=== PATIENT | female | born 1960 | race Caucasian/White ===

== ENCOUNTER → 2016-10-04 | Outpatient (CLI) | payer BC ==
[2015-10-05 13:33] VITALS: BP 139/83; PULSE 72
[~2016-10-04] MED LIST: CALC500C70 PO; SPIR25TA PO; TAMO20TA9 PO
[2016-10-04 13:31] VITALS: BP 128/86; PULSE 81; TEMP 36.8; O2SAT 98
--- NOTE | 2016-10-04 16:26 | Radiation Oncology Follow-Up ---
Radiation Oncology Follow-Up Date of Visit Oct 04, 2016. Reason For Visit Annual follow up Radiation Completion Date Left APBI 06/25/12 Interim History She has noted no masses to her breast. There is no change of the axilla or swelling of her arm. She continues on tamoxifen. She did have an abnormal mammogram 04/05/2016. This showed a new grouped microcalcifications in the lower inner right breast which need additional evaluation. She then had a unilateral right breast mammogram 04/11/2016. Right breast stereotactic guided biopsies recommended for a new 2 mm cluster of punctate and amorphous microcalcifications in the lower inner right breast. This was carried out on . A stereotactic biopsy revealed fibroadenomatoid change with associated microcalcifications. Negative for DCIS and invasive carcinoma. Another area of tissue was evaluated and was benign. Specimen [id number]. Allergies Coded Allergies: Adhesives (Verified Allergy, Unknown, BLISTERS WHEN BANDAID'S WORN, ) Blueberry (Verified Allergy, Unknown, BLISTERS WITH "BERRIES", 05/06/14) Caffeine (Verified Allergy, Unknown, BLISTERS, 05/06/14) Chocolate (Verified Allergy, Unknown, BLISTERS, 05/06/14) Cranberry Extract (Verified Allergy, Unknown, BLISTERS WITH "BERRIES", ) NUTS (Verified Allergy, Unknown, BERRIES, 05/06/14) Raspberry (Verified Allergy, Unknown, BLISTERS WITH "BERRIES", 05/06/14) Stanton (Verified Allergy, Unknown, BLISTERS WITH "BERRIES", 05/06/14) Home Medications Scheduled Calcium/Vitamin D (Os-Ulysses 500 Plus D), 1 TAB PO DAILY Spironolactone (Aldactone), 25 MG PO DAILY Tamoxifen (Nolvadex), 20 MG PO DAILY Review of Systems Gastrointestinal: Symptoms: WNL Oral: Symptoms: No Problems Respiratory: Symptoms: WNL Other Respiratory: Dry hacking cough since patient had flu 3-4 wks ago Urinary: Symptoms: WNL Skin: Symptoms: No Problems Other Skin Symptoms: Incision healing on left buttock - no observed by me Breast: Right Upper Arm Measurement: 39.8 Right Mid Arm Measurement: 31.7 Right Wrist Measurement: 17.0 Left Upper Arm Measurement: 40.7 Left Mid Arm Measurement: 32.3 Left Wrist Measurement: 17.3 Arm Dominence: Right Physical Exam Vital Signs Date Time Temp Pulse Resp B/P Pulse Ox O2 Delivery O2 Flow Rate FiO2 10/04/16 13:31 36.8 81 16 128/86 98 Pain: Pain Location: None Patient Pain Scale: 0 - 10 Initial Pain Intensity: 0.0 Fatigue: None General Appearance: no apparent distress Eyes: normal inspection, EOMI ENT: normal ENT inspection, hearing grossly normal Neck: supple, no adenopathy, thyroid normal, + pertinent finding (left neck post operative changes) Respiratory/Chest: lungs clear, no respiratory distress, no accessory muscle use Breast: Well healed incisions of the left breast. There is telangetasia of in the area of the breast incision. There are no masses or tenderness and no axillary adenopathy. There are no skin retractions or nipple changes. Using the Leander score cosmesis she has a good outcome. The right breast showed no masses or tenderness and no axillary adenopathy. Cardiovascular: regular rate, rhythm, no gallop, no murmur Abdomen: non tender, soft Extremities: no pedal edema Neurologic/Psychiatric: no motor/sensory deficits, alert, normal mood/affect Skin: warm/dry Additional Studies Mammography as reviewed above. As well as pathology. Assessment & Plan Plan: Continue regular follow-up with medical oncology and Dr. Wesley. A follow-up appointment with our office was not given. She'll call if she has a questions or concerns we'll be happy to see her. Total Time In Follow-Up I spent 20 minutes speaking to the patient to perform examination. I spent 15 minutes reviewing information completing this note. Copy To Quincy Wesley M.D.
== END | disposition home or self-care (01) ==
LOC: C.ONC 13:17
PROVIDERS: ATTEND Physician Assistant Medical
DX: Z08 Encounter for follow-up examination after completed treatment for malignant neoplasm (principal); Z92.3 Personal history of irradiation; Z85.3 Personal history of malignant neoplasm of breast

== ENCOUNTER → 2016-12-28 | Outpatient (CLI) | payer BC ==
[2016-12-28 12:23] LABS: BASO % 0.4 %; BASO ABS # 0.02 K/uL (0-0.2); COMPLETE YES; IG% 0.2 %; LYMPH % 27.7 %; LYMPH ABS # 1.29 K/uL (1.2-3.4); MEAN CELL VOLUME 89.4 fL (80-100); MEAN CORPUSCULAR HEMOGLOBIN 30.9 pg (25-34); MEAN CORPUSCULAR HGB CONC 34.6 g/dl (32-36); MEAN PLATELET VOLUME 11.4 fL (7.4-10.4); MONO % 8.4 %; NEUT % 60.3 %; PLATELET COUNT 226 K/uL (130-400); RED BLOOD COUNT 4.14 M/uL (4.2-5.4); WHITE BLOOD COUNT 4.66 K/uL (4.8-10.8)
[2016-12-28 13:02] LABS: ESTIMATED AVERAGE GLUCOSE 123 mg/dl; HA1C FLAG Normal (Normal)
[2016-12-28 13:31] LABS: BLOOD UREA NITROGEN 13 mg/dl (7-18); BUN/CREATININE RATIO 12.2 (10-20); CALCIUM 9.1 mg/dl (8.5-10.1); CARBON DIOXIDE 25 mmol/L (21-32); CHLORIDE 109 mmol/L (98-107); CHOLESTEROL 158 mg/dl (0-200); GLUCOSE 96 mg/dl (70-99); POTASSIUM 3.8 mmol/L (3.5-5.1); SODIUM 142 mmol/L (136-145)
[2016-12-28 13:42] LABS: ALB/GLOB RATIO 1.1 (0.9-2); ALKALINE PHOSPHATASE 49 U/L (45-117); ALT/SGPT 42 U/L (12-78); AST/SGOT 23 U/L (15-37); CHOLESTEROL/HDL RATIO 3.2; HDL CHOLESTEROL 50 mg/dl; LDL CHOLESTEROL CALCULATED 85 mg/dl; TRIGLYCERIDES 115 mg/dl (0-150); VERY LOW DENSITY LIPOPROT CALC 23 mg/dl
== END | disposition home or self-care (01) ==
LOC: C.LABBFT 09:53
PROVIDERS: ATTEND Internal Medicine Geriatric Medicine
DX: I10 Essential (primary) hypertension (principal); R73.9 Hyperglycemia, unspecified; G47.33 Obstructive sleep apnea (adult) (pediatric); E04.2 Nontoxic multinodular goiter; Z68.41 Body mass index [BMI] 40.0-44.9, adult

== ENCOUNTER → 2017-04-29 | Outpatient (CLI) | payer BC ==
--- NOTE | 2017-04-29 13:35 | MAMMOGRAPHY REPORT ---
BILATERAL DIGITAL DIAGNOSTIC MAMMOGRAM TOMOSYNTHESIS WITH CAD: 04/29/2017 CLINICAL HISTORY: 56-year-old woman presents for annual bilateral mammography. She underwent stereot actic guided biopsy on 04/24/2016 in the lower inner right breast which yielded benign pathology resu lts. History of left breast cancer in the upper outer quadrant, status post lumpectomy and radiation . The patient also reports intermittent burning sensation in the lateral left breast, which occurred for a few weeks over the summer but has since resolved. TECHNIQUE: Bilateral breast tomosynthesis in addition to standard 2D mammography was performed. Curre nt study was also evaluated with a Computer Aided Detection (CAD) system. COMPARISON: Comparison is made to exams dated: 04/24/2016 mammogram, 04/24/2016 stereotactic biopsy, 04/11/2016 mammogram, 04/05/2016 mammogram, 08/04/2015 ultrasound, and 08/04/2015 mammogram - [facility]. BREAST COMPOSITION: There are scattered areas of fibroglandular density in both breasts. FINDINGS: There is expected architectural distortion and surgical clips in the upper outer posterior left breast, at the site of prior lumpectomy. There is a stable benign popcorn calcification in the lateral right breast, and a stable T-shaped biopsy marker clip in the lower inner quadrant of the rig ht breast, denoting the site of recent benign stereotactic biopsy. There are a few scattered benign- appearing round microcalcifications in the breasts. No suspicious mass, architectural distortion or cluster of suspicious microcalcifications is seen. IMPRESSION: ACR BI-RADS CATEGORY 2: BENIGN 1. Stable bilateral mammograms, without mammographic evidence of malignancy. A 1 year screening [facility] is recommended. 2. We discussed the reported burning sensation in the lateral left breast is possibly related to fransico or surgery and/or radiation therapy. If she develops this symptom again, she could return for additi onal imaging with ultrasound in the area of concern. Otherwise recommend routine screening in 1 year . The patient has been verbally notified of the results. Approximately 10% of breast cancers are not detected with mammography. A negative mammographic report should not delay biopsy if a clinically suggestive mass is present. Corry Kirk M.D. ay/:04/29/2017 10:15:56 [employer] Teacher: Janey KIMBLE)(Murtaza), [facility] letter sent: Normal 07/09 BI-RADS Code: ACR BI-RADS Category 2: Benign
== END | disposition home or self-care (01) ==
LOC: C.MAMM 09:25
PROVIDERS: ATTEND Internal Medicine Geriatric Medicine
DX: Z85.3 Personal history of malignant neoplasm of breast (principal)

== ENCOUNTER 2024-08-07 05:11 | Observation (INO) ==
--- NOTE | 2024-07-03 09:39 | PAT Medication Instructions ---
Medication Instructions Date of Service July 03, 2024 Home Medications Medication Instructions Recorded Auto Titrating CPAP See Rx Instructions .Route 01/16/21 .COMPLEX #1 ea spironolactone 50 mg tablet 50 mg PO QAM #90 tabs 08/27/23 metformin 500 mg tablet,extended 500 mg PO QPM #90 tabs 12/24/23 release 24 hr rosuvastatin 10 mg tablet 10 mg PO DAILY #90 tabs 01/13/24 tirzepatide 5 mg/0.5 mL 5 mg (0.5 mL) subcut Q7D #2 mL 05/07/24 subcutaneous pen injector topiramate 25 mg tablet 25 mg PO DAILY #30 tabs 05/20/24 spironolactone 50 mg tablet 50 mg PO QAM metformin 500 mg tablet,extended release 24 hr 500 mg PO QPM rosuvastatin 10 mg tablet 10 mg PO DAILY tirzepatide 5 mg/0.5 mL subcutaneous pen injector 5 mg (0.5 mL) subcut Q7D topiramate 25 mg tablet 25 mg PO DAILY STOP 7 days before surgery tirzepatide 5 mg/0.5 mL subcutaneous pen injector 5 mg (0.5 mL) subcut Q7D Continue as directed rosuvastatin 10 mg tablet 10 mg PO DAILY topiramate 25 mg tablet 25 mg PO DAILY DO NOT take the morning of surgery spironolactone 50 mg tablet 50 mg PO QAM Take evening before surgery metformin 500 mg tablet,extended release 24 hr 500 mg PO QPM Other Notes NOTHING TO EAT OR DRINK AFTER MIDNIGHT. If you have any questions please call us at [phone] or [phone] or [phone] or [phone]
--- NOTE | 2024-07-15 11:40 | Anesthesiology Consultation ---
Date of Service July 15, 2024 Assessment & Plan (1) Encounter for pre-operative examination: Chart Review Chart Review: Acceptable Risk for Surgery (pending review of PCP ordered ECHO 07/17/24) and Patient seen in Pre Admission Testing - Awaiting ECHO ([place]) 07/17/24 (ordered by PCP) - Check BSG AM DOS - Patient not an ideal OPJ candidate (currently 23 hour obs ) Chlorhexidine allergy- no wipes given at PAT appt - Tirzepatide instructions: Patient takes on (Fridays). Patient informed at PAT visit to stop 7 days prior to surgery- voiced understanding. Last dose of Tirzepatide will be in the AM on 07/31/24. Patient will be off Tirzepatide x 7 days by DOS on 08/07/24. Per PAT appt on 07/15/24, no recent illness/disease exposures, illness related symptoms, or recent illness/disease positive tests. Will leave to surgeon's discretion if preop Covid testing needed Patient seen by PCP 06/21/24= seen for routine follow up. HTN- acceptable control. Continue current medications. Dyslipidemia- continue statin. DM- currently at goal. Severe obesity- slowly improving with GLP-1RA/GIP. Encourage diet and exercise. Moderate UBALDO- CPAP. 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 No evidence od recurrence. Hx of breast cancer 2011- s/p resection, XRT and tamoxifen x 5 years... Recent left chest/breast pain- chest well nontender. Has upcoming mammogram. Symptoms are not exertional... EKG NSR. Considering upcoming surgery- should have CXR and ECHO. OA... To have left total hip arthroplasty next month. Using revised cardiac risk index, she is low risk for perioperative cardiovascular complications. She should hold Mounjaro the week prior to surgery. Teaching & Discussion Pre-Anesthesia Teaching/Discussion Notes: Instructed NPO after midnight before surgery,except medications with 15 cc of water. Medication instructions provided according to the [facility] guidelines. History Surgery Operation Date: 08/07/24 12:40 Proposed Procedures p Left Total Hip Arthroplasty Anterior - Al Florse DO Height/Weight Height: 5 ft 1 in Weight: 97.7 kg Allergies Allergy/AdvReac Type Severity Reaction Status Date / Time adhesive Allergy Intermediate BLISTERS Verified 07/10/24 14:40 WHEN BANDAID'S WORN latex Allergy Mild Redness of Verified 07/10/24 14:40 Skin lisinopril AdvReac Intermediate dry cough Verified 07/10/24 14:40 losartan AdvReac Intermediate dry cough Verified 07/10/24 14:40 chlorahexidine Allergy Intermediate Rash Uncoded 07/10/24 14:40 Medications Home Medications Medication Instructions Recorded Confirmed Last Taken Auto Titrating CPAP See Rx Instructions .Route 01/16/21 07/10/24 Unknown .COMPLEX #1 ea spironolactone 50 mg tablet 50 mg PO QAM #90 tabs 08/27/23 07/10/24 Unknown metformin 500 mg tablet,extended 500 mg PO QPM #90 tabs 12/24/23 07/10/24 Unknown release 24 hr rosuvastatin 10 mg tablet 10 mg PO DAILY #90 tabs 01/13/24 07/10/24 Unknown topiramate 25 mg tablet 25 mg PO DAILY #30 tabs 05/20/24 07/10/24 Unknown tirzepatide 5 mg/0.5 mL 5 mg (0.5 mL) subcut Q7D #2 mL 07/15/24 07/15/24 Unknown subcutaneous pen injector Past Medical History Medical History Acinar cell carcinoma of salivary gland (~05/13/14) H/O - sx >> no chemo/radiation Arthritis Basal cell carcinoma of left lower leg h/o- excision Dermatofibroma Ductal carcinoma in situ (DCIS) of left breast 2012--s/p lumpectomy and radiation Dyslipidemia History of COVID-19 ~03/08/2024 - no hosp; resolved HTN (hypertension) Multiple thyroid nodules stable Obesity states on topamax for weightloss Rosacea Sleep apnea CPAP Type 2 diabetes mellitus Exercise / Class Metabolic Activity II 4-5 Yardwork/Stairs/Walk up hill (one flight of stairs - no chest pain or SOB ) Past Family History Family History Sister Family history of diabetes mellitus Father Family history of diabetes mellitus Arthritis Mother Breast cancer Grandmother Stroke Family/Other Diabetes Other No family history of adverse response to anesthesia Denies family history of Ovarian cancer Prostate cancer Myocardial infarction Lung cancer Colorectal cancer Past Surgical History Surgical History H/O parotidectomy (~05/2014) 2013-left d/t parotid mass History of cataract surgery History of colonoscopy last 06/24/2018 History of endometrial ablation History of lumpectomy of left breast 2012 @ [facility] History of tooth extraction wisdom teeth S/P epidural steroid injection hip injections Past Anesthesia History No Hx of Anesthesia Complications and No Family Hx of Anesthesia Complications History of PONV No Hx of PONV and No Hx of Motion Sickness Social History Smoking Status: Never smoker Do You Dip or Chew Tobacco: No Hx Alcohol Use: No Hx Substance Use: No substance use type: does not use Review of Systems - Left sided chest discomfort - lasted a few days in Jun 2024- occurred during rest. Lasted few minutes- resolved. PCP aware- reason for ECHO ordered. Has completely resolved. No issues with physical activity. Had been using different shifting positions with transitioning due to hip pain- possible pulled muscle. - Hx of reflux- relieved with OTC antacids Patient denies substernal chest pain, shortness of breath, dyspnea on exertion, reflux, cough, wheezing, palpitations. No hx of seizures, stroke, AK. No hx of blood clots or blood transfusions Physical Exam Vital Signs VITALS BP 120/77 P 68 TEMP 97.8 SP02 97% RESP 16 Constitutional no acute distress ENMT Mouth: no TMJ clicking Thyromental Distance: < 3.5 Finger Breadths (3.0) Mallampati Class: II [place] to molar Neck neck extension not limited Respiratory normal respiratory effort; no respiratory distress Auscultation: lungs clear to auscultation bilaterally; no wheezes Cardiovascular Rate/Rhythm: regular rate and regular rhythm Heart Sounds: no murmur Vessels: no carotid bruit Musculoskeletal Spine: no pain with cervical ROM Extremities: extremities normal to inspection Psychiatric Orientation: alert Lab Results Anesthesia Preop Results Results Anesthesia Widget: WBC 6.38 K/ul (4.8-10.8) 07/15/24 Hgb 13.3 g/dl (12.0-16.0) 07/15/24 Hct 39.2 % (37.0-47.0) 07/15/24 Plt 272 K/uL (130-400) 07/15/24 Na 140 mmol/L (136-145) 07/15/24 K 4.0 mmol/L (3.5-5.1) 07/15/24 Cl 108 mmol/L (98-107) H 07/15/24 CO2 26 mmol/L (21-32) 07/15/24 BUN 14 mg/dl (6-23) 07/15/24 Creat 1.00 mg/dl (0.6-1.2) 07/15/24 Glucose Level 80 mg/dl (70-99(Fasting)) 07/15/24 PT 10.5 Seconds (9.0-12.0) 07/15/24 PTT 27 Seconds (21-31) 07/15/24 INR 1.0 (0.9-1.1) 07/15/24 HA1c 5.7 % (4.5-5.6) H 07/15/24 Blood Type A Positive 07/15/24 Antibody Screen NEGATIVE 07/15/24 Testing Electrocardiogram Date: 06/22/24 SR with 70bpm Inferior and anterior T wave changes are nonspecific Likely lead placement per confirming provider Chest X-Ray Date: 07/15/24 Findings: + NAD
[2024-08-07] MEDS: LR 500ML BOLUS, THEN 15ML/HR IV SCH (06:08)
[2024-08-07] MEDS: LR 60ML/HR IV SCH (06:08)
[2024-08-07] MEDS: dexAMETHasone**PF** 10 MG/ML VIAL IV SCH (06:09)
[2024-08-07] MEDS: GABAPENTIN 300 MG CAP PO SCH (06:09)
[2024-08-07] MEDS: FAMOTIDINE 20 MG TAB PO SCH (06:09)
[2024-08-07] MEDS: ACETAMINOPHEN 500 MG TAB PO SCH ×2 (06:09→14:32)
[2024-08-07] MEDS ORDERED: BUPIVACAINE 0.5 % 5 MG/1 ML PF 10ML VIAL ONE (06:35)
--- NOTE | 2024-08-07 06:39 | History & Physical Bridge Note ---
Date of Service August 07, 2024 History & Physical Bridge Note I have examined the patient, reviewed the History & Physical and in the interval since the performance of the History & Physical I have noted the following changes of clinical significance: no changes noted
[2024-08-07] MEDS: TRANEXAMIC ACID 1,000 MG **IV Pre-op IV SCH (06:44)
[2024-08-07] MEDS ORDERED: MIDAZOLAM HCL 1 MG/ML 2ML VIAL ONE (06:46)
[2024-08-07] MEDS ORDERED: fentaNYL citrate PF 100 MCG/2 ML VIAL IV PRN (07:05)
[2024-08-07] MEDS ORDERED: PROMETHAZINE HCL 6.25 MG in SODIUM CHLORIDE 0.9% 50 ML IV PRN (07:05)
[2024-08-07] MEDS ORDERED: ATROPINE SULFATE 0.1 MG/ML 10ML SYR IV PRN (07:05)
[2024-08-07] MEDS ORDERED: ePHEDrine sulfate 50 MG/ML AMP IV PRN (07:05)
[2024-08-07] MEDS ORDERED: ONDANSETRON INJ 2 MG/ML 2 ML VIAL IV PRN ×2 (07:05→10:26)
[2024-08-07] MEDS ORDERED: PROPOFOL IV EMULSION 10 MG/ML 20 ML VIAL IV ONE (07:06)
[2024-08-07] MEDS: ceFAZolin 2000MG 2,000 MG/15 ML SYR IV SCH ×2 (07:10→14:32)
[2024-08-07] MEDS ORDERED: KETAMINE HCL 10MG/ML SYR ONE (07:27)
[2024-08-07] MEDS: ORTHO JOINT ANESTHETIC ONE (07:42)
[2024-08-07] MEDS: ROPIV 0.5% 246mg, Ketorolac 30mg, EPINEPHrine 0.5mg in NSS INFIL SCH (07:42)
[2024-08-07] MEDS ORDERED: ONDANSETRON INJ 2 MG/ML 2 ML VIAL ONE (08:00)
[2024-08-07] MEDS: TRANEXAMIC ACID 1,000 MG **IV Intra-op IV SCH (08:06)
--- NOTE | 2024-08-07 08:08 | Operative Report ---
PG Post Operative Report Pre & Post Diagnosis Operation Date: 08/07/24 07:00 Pre-Op Diagnosis: Left Hip Osteoarthritis Post-Op Diagnosis: Left Hip Osteoarthritis I identified the patient and participated in the time-out.: Yes Procedure Operation Date: 08/07/24 07:00 Actual Procedures p Left Anterior Total Hip Arthroplasty, Uncemented(Left) - Al Flores DO Surgeon Al Flores DO [employer] Delfino Kerr PA-C Estimated Blood Loss 150 Findings Consistent with Post-Op Diagnosis Specimens Left femoral head Description of Procedure Implants used I used a ZimmerBiomet total hip arthroplasty system with a size 2 standard offset Avenir Complete stem, a 48 mm G7 cup with a 25mm screw, an E1 polyethylene liner, a 32 mm ceramic head with a +3.5 neck. Jennifer arrived at the hospital for the above procedure. She was seen in the preoperative holding area and the operative extremity was identified and signed. She was given a spinal anesthetic, a preoperative antibiotic, and TXA. She was then taken back to the operating room and laid on the table in the supine position. She was given basic sedation. The operative leg was secured to a Puristst leg positioner. The hip was then prepped and draped in sterile fashion. A timeout was done and the patient and the operative extremity was properly identified. An anterior approach was used. Dissection was taken down through the fascia and the tensor muscle belly was retracted laterally and the rectus was retracted medially. The circumflex vessels were identified and ligated. The capsule was then incised and tagged for later repair. The femoral neck was then cut and the femoral head was removed. The acetabulum was exposed. Time was spent doing a complete circumferential labral release. Sequential reaming of the acetabulum up to a size 47 reamer was done. Final reamings were done under fluoroscopy to ensure appropriate version. A Biomet 48 mm G7 cup was then impacted into place. A single 25 mm screw was placed. The E1 polyethylene liner was then snapped into place. Surrounding soft tissues were then injected with 100 cc of an orthopedic pain control cocktail. The proximal femur was then exposed. Sequential broaching up to a size 2 broach was done. Off that broach a size 32 head with a +3.5 neck was trialed. The hip was reduced and fluoroscopic images showed anatomic alignment of the implants in acceptable length. The broach was removed. The final size 2 standard offset Avenir Complete stem was then impacted into place. A ceramic 32 mm head with a +3.5 neck was then impacted onto the stem and the hip was reduced. Final fluoroscopic images showed anatomic alignment of the hip. The capsule was then closed with #1 Vicryl suture. A dilute betadyne lavage was then done for 3 minutes. The joint was then irrigated with normal saline solution. The fascia was closed with #1 PDS suture. Skin was closed with 2-0 Vicryl, mark, and a Silverlon dressing. She was then transferred to a hospital bed and taken to the post anesthesia care unit in stable condition. She tolerated the procedure well. Delfino Kerr PA-C, was present for the entire procedure. He was critical for patient positioning, prepping, draping, retraction exposure, wound closure and application of sterile dressing. I attest to the content of the Intraoperative Record and any orders documented therein. Any exceptions are noted below.
--- NOTE | 2024-08-07 08:56 | XRay Report ---
XR hip 1V LT w pelvis CLINICAL HISTORY: IN PACU - Post Surgical COMPARISON: 08/28/2023 FINDINGS: Interval left hip prosthesis shows no hardware complication. There is expected soft tissue gas and skin mark are present. IMPRESSION: Unremarkable postoperative exam. ACT 112: Negative or not required by law. Electronically signed by: Armando Haider M.D. 08/07/2024 8:55 AM
--- NOTE | 2024-08-07 09:59 | Fluoroscopy Report ---
FL hip LT 1V CLINICAL HISTORY: LEFT ANTERIOR HIPpostop COMPARISON STUDY: 07/15/2024 FLUOROSCOPY TIME: 23.5 seconds FLUOROSCOPY IMAGES: 1 EXPOSURE DOSE: 3.74 mGy FINDINGS: Single C-arm spot film demonstrates a left total hip arthroplasty with satisfactory positio nadia and alignment of the prosthetic components. IMPRESSION: As above ACT 112: Negative or not required by law. Electronically signed by: Yue Barriga M.D. 08/07/2024 9:57 AM
[2024-08-07] MEDS ORDERED: MAGNESIUM HYDROXIDE SUSP 30 ML UDC PO PRN (10:26)
[2024-08-07] MEDS ORDERED: TIRZEPATIDE 5 MG/0.5 ML SQ SCH (10:26)
[2024-08-07] MEDS ORDERED: NON-FORMULARY MEDICATION (Auto Titrating Cpap misc) SCH (10:26)
[2024-08-07] MEDS ORDERED: PHARMACY GLYCEMIC MGMT CONSULT PRN (10:26)
[2024-08-07] MEDS ORDERED: bisacodyL 10 MG SUPP PR PRN (10:26)
[2024-08-07] MEDS ORDERED: oxyCODONE HCL IR 5 MG TAB (IMMEDIATE RELEASE) PO PRN (10:26)
[2024-08-07] MEDS ORDERED: HYDROmorphone INJ 0.5 MG/0.5 ML SYR IV PRN (10:26)
[2024-08-07] MEDS ORDERED: METOCLOPRAMIDE HCL INJ 5 MG/ML 2 ML VIAL IV PRN (10:26)
[2024-08-07] MEDS ORDERED: ASPIRIN 81 MG ECTAB PO SCH (10:26)
[2024-08-07] MEDS ORDERED: NALOXONE HCL 0.4 MG/1 ML VIAL/CARP IV PRN (10:26)
[2024-08-07] MEDS ORDERED: GLUCOSE 10 TAB/TUBE PO PRN (11:15)
[2024-08-07] MEDS ORDERED: GLUCAGON FOR INJ 1 MG VIAL SQ PRN (11:15)
[2024-08-07] MEDS ORDERED: DEXTROSE 50% 50 ML SYRINGE IV PRN (11:15)
[2024-08-07] MEDS ORDERED: CARBOHYDRATES FOR HYPOGLYCEMIA PO PRN (11:15)
[2024-08-07] MEDS ORDERED: GLUCOSE 40% GEL 15 GM TUBE PO PRN (11:15)
[2024-08-07] MEDS: SPIRONOLACTONE 25 MG TAB PO SCH (11:39)
[2024-08-07] MEDS: TOPIRAMATE 25 MG TAB PO SCH (11:39)
[2024-08-07] MEDS: KETOROLAC TROMETHAMINE 15 MG/ML VIAL IV SCH (11:39)
[2024-08-07] MEDS: DOCUSATE SODIUM 100 MG CAP PO SCH (11:40)
[2024-08-07] MEDS: MULTIVITAMIN TAB PO SCH (11:41)
[2024-08-07] MEDS: ROSUVASTATIN CALCIUM 10 MG TAB PO SCH (11:41)
[2024-08-07] MEDS: INSULIN ASPART PER UNIT CHARGE SC SCH (12:29)
--- NOTE | 2024-08-07 14:40 | Anesthesiology Progress Note ---
Date of Service August 07, 2024 Anesthesia Post Procedure Vital Signs Vital Signs: Temp Pulse Pulse Resp BP Pulse Ox O2 Del Method 08/07/24 13:11 84 16 153/87 H 96 Room Air 08/07/24 12:20 84 16 136/84 97 Room Air 08/07/24 11:21 36.4 C L 76 16 125/80 100 Room Air 08/07/24 11:10 36.3 C L 78 17 123/77 94 Room Air 08/07/24 10:43 36.3 C L 18 135/81 97 Room Air 08/07/24 09:55 73 20 134/73 98 Room Air 08/07/24 09:45 36.4 C L 79 24 136/72 98 Room Air 08/07/24 09:35 79 19 136/92 100 Room Air 08/07/24 09:25 74 16 130/67 95 Room Air 08/07/24 09:15 75 14 128/69 97 Room Air 08/07/24 09:05 75 22 123/66 98 Room Air 08/07/24 08:55 77 27 H 119/68 99 Room Air 08/07/24 08:45 76 20 134/66 99 Oxymask 08/07/24 08:35 79 24 126/81 100 Oxymask 08/07/24 08:28 36.0 C L 85 23 114/60 97 Oxymask 08/07/24 05:40 37.2 C 90 20 171/81 H 97 Room Air O2 Flow Rate 08/07/24 13:11 08/07/24 12:20 08/07/24 11:21 08/07/24 11:10 08/07/24 10:43 08/07/24 09:55 08/07/24 09:45 08/07/24 09:35 08/07/24 09:25 08/07/24 09:15 08/07/24 09:05 08/07/24 08:55 08/07/24 08:45 5 08/07/24 08:35 10 08/07/24 08:28 10 08/07/24 05:40 Pain Intensity Left Hip: Pain Intensity: 2 Transfer of Care Handoff Completed per policy Notes Mental Status: alert / awake / arousable and participated in evaluation Patient Amnestic to Procedure: Yes Nausea / Vomiting: adequately controlled Pain: adequately controlled Airway Patency, RR, SpO2: stable & adequate BP & HR: stable & adequate Hydration State: stable & adequate Neuraxial Anesthesia: was administered and sensory block is resolving Anesthetic Complications: no major complications apparent and Pt Satisfied with anesthetic care
--- NOTE | 2024-08-07 16:06 | Pharmacy Report ---
Pharmacy Glycemic Short Note 2 - Date of Service August 07, 2024 - Glycemic Short BSG Results (Last 24 hours): 08/07/24 08/07/24 08/07/24 05:44 08:32 11:25 POC Glucose 103 H 130 H 115 H OUTPATIENT ANTIDIABETIC REGIMEN: * Metformin ER 500 mg PM * Tirzepatide 5 mg SC weekly on Fridays * A1c = 5.7% (07/15/24) ASSESSMENT: * Jennifer is a 63 yo s/p left anterior total hip arthroplasty * Patient received dexamethasone IV preop, no further steroids ordered. * Do not anticipate basal insulin will be needed based on A1c and current BSG values (103, 115 mg/dL). * Will order overnight checks to ensure additional insulin is given if BSG trends up. PLAN FOR INPATIENT GLYCEMIC CONTROL: * Hold outpatient oral diabetes medications * Basal insulin * none * Bolus insulin * NovoLog per scale ACHS or Q6hrs while NPO * Goal Range: Low 110 mg/dL - High 140 mg/dL * Correction Factor: 25 mg/dL/unit * Nutritional / Prandial insulin per carb ratio of 1 unit per 8 grams CHO consumed
[2024-08-07] MEDS ORDERED: INSULIN ASPART PER UNIT CHARGE SC SCH (16:30)
[2024-08-07] MEDS: ASPIRIN 81 MG ECTAB PO SCH (22:16)
[2024-08-07] MEDS: SENNA 8.6 MG TAB PO SCH (22:16)
[2024-08-08] MEDS: INSULIN ASPART PER UNIT CHARGE SC SCH (00:34)
[2024-08-08 07:14] VITALS: BP 128/87; PULSE 64; RESP 18; TEMP 97.7; O2SAT 98
--- NOTE | 2024-08-08 07:18 | Orthopedic Progress Note ---
Date of Service August 08, 2024 Assessment & Plan (1) Status post left hip replacement: Overall she is doing very well. She is not having much pain in the left hip. She we will be seen by physical therapy today for ambulation and range of motion exercises. She is on aspirin for DVT prophylaxis. She can be discharged to home later today. She will follow-up with orthopedics in 2 weeks. Ana Rodriguez was seen and examined at bedside this morning. Overall she is doing very well. She is not having much pain in the left hip. She has been up and ambulating to the bathroom. She has no complaints.. Review of Systems All systems reviewed & are unremarkable except as noted in HPI & below. Physical Exam On physical exam of the left hip, the dressing is clean and dry. Her leg is out full extension. She has active dorsiflexion plantarflexion of her left ankle.. Results & Data Results & Data Laboratory Results . Diagnostic Findings Postoperative x-rays of the left hip show the prosthesis to be in anatomic alignment without any evidence of fracture complication, or loosening.. PG Care Time/CCT Total # of Minutes Spent Total Time Spent with Patient: Total time spent is greater than 50% in coordination of care (as documented) at patient's floor/unit and/or counseling patient: Coding Level of Care Code 46047 Post Operative Follow-Up Diagnoses Status post left hip replacement Z96.642
--- NOTE | 2024-08-08 07:19 | Discharge Summary ---
Date of Service August 08, 2024 Principal Diagnosis Same as "Discharge Diagnosis" noted below under Discharge Instructions. Discharge Exam On physical exam of the left hip, the dressing is clean and dry. Her leg is out full extension. She has active dorsiflexion plantarflexion of her left ankle.. Discharge Data Procedures Performed Operation Date: 08/07/24 07:00 Actual Procedures p Left Anterior Total Hip Arthroplasty, Uncemented(Left) - Al Flores DO Ordered Studies 08/07/24 07:00 FL hip LT 1V Routine Hospital Course (1) Status post left hip replacement: On August 07, 2024 Jennifer arrived at [facility] and underwent a left hip replacement without complication. She had a spinal anesthetic. Postoperatively she was started on aspirin for DVT prophylaxis and transferred to the general orthopedic floors. Her hospital course was uneventful. On postop day #1, her vital signs were stable and her pain was well-controlled. She was able to participate well with physical therapy doing ambulation and range of motion exercises. She was then discharged to home. She will follow-up with orthopedics in 2 weeks. PG Care Time/CCT Total # of Minutes Spent Total Time Spent with Patient: Total time spent is greater than 50% in coordination of care (as documented) at patient's floor/unit and/or counseling patient: Discharge Plan Discharge Items Patient Disposition: Home - Self-Care Reason For Visit: Left Hip Arthritis Discharge Diagnosis: Left hip replacement Activity: Per Instructions section Non-emergency contact: Surgeon Call non-emergency contact if: your wound has increased redness and your wound has increased drainage Follow-up/Referrals: Elisabteh Collazo MD [Primary Care Provider] - Diet: Regular Addtl Attending Provider Instructions: Activity and Therapy Recommendations: * If you are using [facility] then therapy will be provided at your home until they feel you have accomplished all of your goals. * If you are using [facility] then Physical Therapy will be provided until they feel you are ready to start Outpatient Physical Therapy. * If you are not using home therapy then Outpatient Physical Therapy should start about 3-5 days from your day of surgery. Therapy will last about 6-10 weeks * You were shown a series of exercises in the hospital. Do these exercises three times each day including the exercises you were shown in physical therapy. * Get up and walk several times each day.~ For the first four weeks, try not to stand or walk for more than one hour at a time. If you do stand or walk for more than one hour, you will not hurt anything, but your leg will likely swell.~~ * As you feel comfortable, you may change from the walker or crutches to a cane and~then to independent walking. Medications: * Narcotic You will likely be sent home from the hospital with a prescription f or the narcotic pain medication that worked best throughout your stay. * Cefadroxil -take the antibiotic twice a day for 10 days to help prevent infection. * Aspirin Most patients will be required to take Aspirin 81mg twice a day for 6 weeks after surgery. This is obtained [id number] and a prescription is not necessary. * Other medications may be prescribed for specific circumstances. If you have any questions, please call the office at . * Resume previous home medications unless otherwise instructed TEDs/Elastic Stockings: The white elastic stockings help limit swelling and prevent blood clots from forming in your legs. The more you wear them, the more they work. Wear them for six weeks. Dressing Care: Leave the Silverlon dressing in place for 7 days. After 7 days you may remove the dressing. If the incision is not draining then you may leave the mark open to air. If there is a little bit of drainage or if the mark are getting stuck on your clothing then cover the incision with a dry dressing. The mark will be removed at your 2 week follow-up appointment. Showering: You may shower with the Silverlon dressing in place. Do not let the shower spray hit the dressing directly. Pat the Silverlon dressing dry. If the dressing becomes wet underneath, then simply remove the dressing. Keep the incision dry until you are 7 days out from the day of surgery. After 7 days you may remove the Silverlon dressing and shower with the mark exposed. Let soapy water run over the mark and pat them dry. Do not scrub or soak the incision. Diet: You may resume your previous diet. Things To Watch For: * Drainage from the incision site that occurs more than one week after your surgery. * Increased redness at the incision site. * Fever above 102 degrees Fahrenheit. * Unusual chest pain or shortness of breath. * Call [facility] at with any of the above problems Follow-Up Visit: Follow-up with Dr. Flores's office 2-3 weeks after your day of surgery. We will remove your mark and answer any questions. If you have any additional questions or concerns, Dr Flores is usually in the office at the same time and will be available An appointment was probably scheduled when you signed-up for surgery in the office. If you have any questions call Office Instructions: More detailed instructions as well as Frequently Asked Questions were provided in a folder by our office when you signed-up for surgery. Please review these instructions when you get home. If you have any further questions or concerns, please feel free to call the office at [phone] Pending Studies at Discharge: No Stand-Alone Forms: [facility], Smoking Cessation Medications and DC Order Prescriptions: New cefadroxil 500 mg capsule 500 mg PO BID 10 Days Qty: 20 0RF oxycodone 5 mg tablet 5 mg PO Q6H PRN (Reason: pain) Qty: 30 0RF aspirin 81 mg Tablet,Delayed Release (Dr/Ec) 81 mg PO BID 42 Days Qty: 84 0RF Continued Auto Titrating CPAP Misc See Rx Instructions .ROUTE .COMPLEX Qty: 1 0RF Rx Instructions: AUTO CPAP 4-20CM WATER PRESSURE DX: G47.33 LENGTH OF NEED: 99 MONTHS; spironolactone 50 mg tablet 50 mg PO QAM Qty: 90 3RF metformin 500 mg tablet extended release 24 hr 500 mg PO QPM Qty: 90 3RF rosuvastatin 10 mg tablet 10 mg PO DAILY Qty: 90 3RF tirzepatide 5 mg/0.5 mL pen injector 5 mg subcut Q7D Qty: 2 2RF Patient Comments: fridays topiramate 25 mg tablet 25 mg PO DAILY Qty: 30 2RF Discharge Orders: Discharge Order (Routine); Ordered 08/08/24 Ordered By: Al Flores Admission Data Admit Date/Time: 08/07/24 08:29 Attending Provider: Al Flores Admit Provider: Al Flores Primary Care Provider: Elisabeth Collazo
[2024-08-08] MEDS ORDERED: metFORMIN HCL ER 500 MG TABCR PO SCH (21:00)
== END 2024-08-08 11:00 | disposition home or self-care (01) ==
LOC: 3E 05:11 → ASU 05:11